=== PATIENT | male | born 1990 | race Two or more races ===

== ENCOUNTER 2022-07-23 22:26 | Emergency (ER) | payer MEDICAID, OTHER ==
[~2022-07-23] VITALS: Ht 175.3 cm; Wt 100.0 kg
[2022-07-23 22:26] VITALS: BP 132/80
== END 2022-07-24 04:14 | disposition left against medical advice (07) ==
LOC: ER 22:26 → EDBD 22:26 → ER 07-24 04:14
DX: S41.112A Laceration without foreign body of left upper arm, initial encounter (principal); R41.82 Altered mental status, unspecified; Z53.21 Procedure and treatment not carried out due to patient leaving prior to being seen by health care provider